=== PATIENT | male | born 1945 | race Caucasian/White ===

== ENCOUNTER 2023-07-10 09:18 | Outpatient (CLI) | payer MEDICARE, BC | END 2023-07-10 09:19 | disposition home or self-care (01) | LOC: ULT 09:18 | PROVIDERS: ATTEND Internal Medicine | DX: N18.31 Chronic kidney disease, stage 3a (principal); N28.1 Cyst of kidney, acquired; N32.3 Diverticulum of bladder | CPT/HCPCS: 76770 ==